=== PATIENT | female | born 1990 | race Two or more races ===

== ENCOUNTER 2017-07-15 12:00 | Inpatient (IN) | payer OTHER ==
[~2017-07-15] VITALS: Ht 165.1 cm; Wt 74.8 kg
[2017-07-22] MEDS ORDERED: PRENATAL TABLE1 EAC3 PO (08:14)
== END 2017-07-24 14:29 | disposition home or self-care (01) | DRG 775 ==
LOC: LDR 07-22 06:18 → EDBD 07-22 06:18 → OB/GYN 07-22 15:16
PROC: 10E0XZZ Delivery of Products of Conception, External Approach (ICD-10-PCS; principal; 2017-07-22)
PROC: 3E033VJ Introduction of Other Hormone into Peripheral Vein, Percutaneous Approach (ICD-10-PCS; 2017-07-22)
PROC: 4A1HXCZ Monitoring of Products of Conception, Cardiac Rate, External Approach (ICD-10-PCS; 2017-07-22)
PROC: 4A033R1 Measurement of Arterial Saturation, Peripheral, Percutaneous Approach (ICD-10-PCS; 2017-07-22)
DX: O69.81X0 Labor and delivery complicated by cord around neck, without compression, not applicable or unspecified (principal); Z3A.38 38 weeks gestation of pregnancy; Z37.0 Single live birth

== ENCOUNTER 2018-09-01 09:11 | Emergency (ER) | payer OTHER ==
[~2018-09-01] VITALS: Ht 162.6 cm; Wt 64.9 kg
[~2018-09-01 09:11] MED LIST: PRENATAL TABLE1 EAC3 PO
== END 2018-09-01 11:54 | disposition home or self-care (01) ==
LOC: ER 09:11 → CPU-OBS 09:39 → ER 09:39
DX: R07.89 Other chest pain (principal); R00.2 Palpitations; F06.4 Anxiety disorder due to known physiological condition
CPT/HCPCS: G0378; G0379; 93005

== ENCOUNTER 2021-10-11 12:13 | Emergency (ER) | payer OTHER ==
[~2021-10-11] VITALS: Ht 162.6 cm; Wt 69.9 kg
== END 2021-10-11 15:40 ==
LOC: ER 12:13
DX: M54.59 Other low back pain (principal); Z91.013 Allergy to seafood

== ENCOUNTER 2023-08-12 14:33 | Emergency (ER) | payer OTHER ==
[~2023-08-12] VITALS: Ht 162.6 cm; Wt 66.2 kg
[2023-08-12] MEDS ORDERED: KETOROLAC TROMETHAMINE 30 MG VIAL IV ONE (14:45)
[2023-08-12] MEDS ORDERED: ACETAMINOPHEN WITH CODEINE 1 UDTAB TABLET PO ONE (21:45)
== END 2023-08-12 21:43 | disposition home or self-care (01) ==
LOC: ER 14:33
DX: M54.50 Low back pain, unspecified (principal); G89.11 Acute pain due to trauma; Z91.013 Allergy to seafood